=== PATIENT | male | born 1970 | race Caucasian/White ===

== ENCOUNTER 2019-03-27 18:06 | Emergency (ER) | payer SELFPAY ==
[~2019-03-27] VITALS: Ht 190.5 cm; Wt 84.1 kg
[2019-03-27 18:13] VITALS: BP 132/91; TEMP 98.5
[2019-03-27] MEDS ORDERED: NORCO 325 MG-51 TAB (18:23)
[2019-03-27] MEDS ORDERED: XANAX .25M0.25 MG/TA (18:23)
[2019-03-27] MEDS ORDERED: AMBIEN 5MG TABLE5 MG (18:24)
[2019-03-27] MEDS ORDERED: FLEXERIL5 MG (18:24)
[2019-03-27] MEDS ORDERED: CEPHALEXIN500 M1 PO (19:23)
[2019-03-27 19:35] VITALS: PULSE 89
== END 2019-03-27 19:35 | disposition home or self-care (01) ==
LOC: COL.ER 18:06
DX: S60.451A Superficial foreign body of left index finger, initial encounter (principal); Z23 Encounter for immunization; W22.8XXA Striking against or struck by other objects, initial encounter; Y92.009 Unspecified place in unspecified non-institutional (private) residence as the place of occurrence of the external cause